=== PATIENT | female | born 1955 | race Hispanic/Latino ===

== ENCOUNTER → 2022-04-14 | Outpatient (CLI) | payer BC | LOC: RAD 09:18 | PROVIDERS: ATTEND Internal Medicine | DX: M17.0 Bilateral primary osteoarthritis of knee (principal); M43.07 Spondylolysis, lumbosacral region | CPT/HCPCS: 72110 ==

== ENCOUNTER → 2022-05-13 | Outpatient (CLI) | payer BC | LOC: MRI 08:06 | PROVIDERS: ATTEND Internal Medicine | DX: M47.816 Spondylosis without myelopathy or radiculopathy, lumbar region (principal) | CPT/HCPCS: 72148 ==